=== PATIENT | female | born 1960 | race Caucasian/White ===

== ENCOUNTER 2021-01-22 17:22 | Inpatient (IN) | payer OTHER ==
[~2021-01-22] VITALS: Ht 154.9 cm; Wt 60.1 kg
[2021-01-22 17:48] VITALS: BP 134/71
[2021-01-22 18:14] LABS: URINE BILIRUBIN NEGATIVE (Negative); URINE BLOOD 3+ (Negative); URINE CLARITY HAZY; URINE COLOR YELLOW; URINE GLUCOSE-RANDOM NEGATIVE (Negative); URINE KETONES NEGATIVE (Negative); URINE LEUKOCYTES 1+ (Negative); URINE NITRITE NEGATIVE (Negative); URINE PROTEIN 1+ (Negative)
[2021-01-22 18:19] LABS: URINE RBC >20 Many /HPF (0-2)
[2021-01-22 18:20] LABS: BACTERIA >30 Many /HPF (None Seen); MUCUS None Seen strn/LPF (None Seen); SQUAMOUS 4-10 Moderate /LPF (0-3); URINE WBC 6-15 Few /HPF (0-5)
[2021-01-22 18:21] LABS: CASTS None Seen /LPF (None Seen); CRYSTALS None Seen /LPF (None Seen)
[2021-01-22 18:40] LABS: ABSOLUTE BASOPHILS 0.1 thou/uL (0.0-0.2); ABSOLUTE EOSINOPHILS 0.1 thou/uL (0.0-0.7); ABSOLUTE LYMPHOCYTES 2.3 thou/uL (0.8-5.3); ABSOLUTE MONOCYTES 1.5 thou/uL (0.0-1.2); ABSOLUTE NEUTROPHILS 8.8 thou/uL (1.6-8.1); BASOPHILS 0.8 %; EOSINOPHILS 0.9 %; HEMATOCRIT 38.9 % (37.0-47.0); HEMOGLOBIN 13.2 gm/dL (12.0-15.0); LYMPHOCYTES 17.8 %; MCH 29.2 pg (26.0-34.0); MCV 86.1 fL (80.0-100.0); MONOCYTES 11.6 %; MPV 7.2 fl. (7.2-11.1); NUCLEATED RBCS 0 /100WBC; PLATELET COUNT* 336 thou/uL (150-400); POLYS 68.9 %; RBC 4.52 mil/uL (4.20-5.00); RDW-CV 14.5 % (10.5-14.5); WBC 12.8 thou/uL (4.0-11.0)
[2021-01-22 18:50] LABS: CALCIUM 8.9 mg/dL (8.5-10.1); CREATININE 0.8 mg/dL (0.6-1.3); POTASSIUM 3.7 mmol/L (3.5-5.1)
[2021-01-22 18:54] LABS: TOTAL BILIRUBIN 0.4 mg/dL (<0.1-1.0); TOTAL PROTEIN 7.6 g/dL (6.4-8.2)
[2021-01-22 22:41] VITALS: BP 98/61
[2021-01-22 23:07] VITALS: BP 117/60
[2021-01-23 08:00] VITALS: BP 119/65
[2021-01-23 12:26] VITALS: BP 106/61
[2021-01-23 15:55] VITALS: BP 107/56
[2021-01-23 19:39] VITALS: BP 117/59
[2021-01-24 07:27] VITALS: BP 112/58
[2021-01-24 08:44] LABS: ALBUMIN 2.8 g/dL (3.4-5.0); CALCIUM 8.7 mg/dL (8.5-10.1); CREATININE 0.6 mg/dL (0.6-1.3); POTASSIUM 4.1 mmol/L (3.5-5.1); TOTAL BILIRUBIN 0.3 mg/dL (<0.1-1.0)
[2021-01-24 11:22] VITALS: BP 118/58
[2021-01-24 15:48] VITALS: BP 111/48
[2021-01-24 21:00] VITALS: BP 116/58
[2021-01-25 08:25] VITALS: BP 108/60
[2021-01-25] MEDS ORDERED: CEFDINIR300 MG PO (10:57)
[2021-01-25 11:16] VITALS: BP 108/60
== END 2021-01-25 14:01 | disposition home or self-care (01) | DRG 690 ==
LOC: M.ERS 17:22 → M.TBA-ER 20:35 → M.2W 22:51 → M.3W 01-24 15:31
PROVIDERS: Physician Assistant; ADMIT Internal Medicine; ATTEND Internal Medicine
DX: N10 Acute pyelonephritis (principal); K59.00 Constipation, unspecified; F17.210 Nicotine dependence, cigarettes, uncomplicated; B96.89 Other specified bacterial agents as the cause of diseases classified elsewhere; Z20.822 Contact with and (suspected) exposure to COVID-19; Z79.899 Other long term (current) drug therapy